=== PATIENT | female | born 1985 | race Hispanic/Latino ===

== ENCOUNTER 2018-09-10 09:50 | Day surgery (SDC) | payer OTHER ==
[2018-09-07 12:51] LABS: Absolute Lymphocytes (CBC) 1.5 K/uL (0.7-4.9); Absolute Monocytes 0.5 K/uL (0.1-1.3); Absolute Neutrophil 5.1 K/uL (1.8-8.0); Eosinophils % 3.7 % (0-4.4); Hematocrit 34.7 % (36.0-45.0); Lymphocytes % 20.5 % (15.3-44.8); MCH 26.2 pg (27.0-35.0); MCV 78.9 fL (80-100); Monocytes % 6.3 % (3.3-12.3)
[2018-09-10 10:14] LABS: Specific Gravity 1.025 (1.005-1.030)
[2018-09-10] MEDS ORDERED: Ringers Lactate 1,000 ML IV ONE (10:40)
[2018-09-10] MEDS ORDERED: MIDAZOLAM HCL 2 MG/2 ML INJ ONE (12:02)
[2018-09-10] MEDS ORDERED: FENTANYL CITR 100 MCG/2 ML ONE (12:23)
[2018-09-10] MEDS ORDERED: LIDOCAINE 2% MPF 5 ML VIAL ONE (12:23)
[2018-09-10] MEDS ORDERED: PROPOFOL 200 MG/20 ML VIAL IV ONE (12:23)
[2018-09-10] MEDS ORDERED: ONDANSETRON HCL 40 MG/20 ML VIAL ONE ×2 (12:24→12:40)
[2018-09-10] MEDS ORDERED: DEXAMETHASONE 10 MG/ML VIAL ONE (12:40)
[2018-09-10] MEDS ORDERED: KETOROLAC 30 MG/ML INJ ONE (12:40)
[2018-09-10] MEDS ORDERED: NA CHLORIDE 0.9% 1,000 ML ONE (14:20)
--- NOTE | 2018-09-11 00:51 | OP ---
Date of Procedure: 09/10/2018 Surgeon: Rochelle Navarrete MD Preoperative Diagnoses: Heavy menstrual bleeding with irregular cycle and pelvic pain and possible p olyp. Postoperative Diagnoses: Heavy menstrual bleeding with irregular cycle and pelvic pain and possible polyp and endometrial polyp. Procedures Performed: Hysteroscopy, polypectomy with Symphion device, and dilation and curettage. Anesthesia: General with LMA. Specimens: Endometrial polyp and curettings. Complications: No complications. Drains: No drains. Condition: The patient's condition stable. Indications: The patient is a 33-year-old with heavy bleeding that had irregular cycles. She was ev aluated with a transvaginal ultrasound. Her ultrasound showed thickened endometrium, which appeared to be heterogeneous suspicious for polyp. Discussed the findings. The patient recommended that she have a hysteroscopy, polypectomy, and D and C if the polyp was present. Doing this in the hospital i s better due to the need for anesthesia, so she was consented, and brought to the OR. Description Of Procedure: After informed consent was verified, she was taken back to OR, placed in a supine fashion on the operating table. After general anesthesia was given, she was placed in a dors al lithotomy position using Osmel stirrups. The cervix was posterior, speculum placed. Anterior lip grasped with 2 Allis clamps. Prep x3 was done with Betadine. Then using a SlimLine hysteroscope, 3 0-degree lens and normal saline for distention medium. Direct hysteroscopy was performed through the cervical canal into the uterine cavity. The cavity had the left lateral wall polyp that was about 1 .5 cm to 2 cm. The rest of the cavity was empty. There was thickened endometrium. Both tubal ostia were visualized. After the scope was removed, the scope was changed to a Symphion scope. Then norm al saline distention was used. After priming the device into the uterine cavity, situated the tip of the scope at a good position, the resector was introduced and fixed in place. Dissection was perfor med on a cutting mode. After the entire polyp was removed, the camera and the polyp dissector were a ll removed. Endometrial curettings were performed with a #3 curette. These were handed out for perm anent pathology along with the polyp. The patient was recovered from anesthesia and taken to the PACU in stable condition. Instrument, nee dle, and sponge counts were correct at the end of the case. The patient tolerated procedure well. S he has a followup appointment in 1 week. JESSIE Voice ID: [id number] Report ID: [id number]
== END 2018-09-10 14:37 | disposition home or self-care (01) ==
LOC: OR 09:50
PROVIDERS: ATTEND Obstetrics & Gynecology
PROC: 0UDB7ZX Extraction of Endometrium, Via Natural or Artificial Opening, Diagnostic (ICD-10-PCS; 2018-09-10)
PROC: 0UJD8ZZ Inspection of Uterus and Cervix, Via Natural or Artificial Opening Endoscopic (ICD-10-PCS; 2018-09-10)
PROC: 0UB97ZX Excision of Uterus, Via Natural or Artificial Opening, Diagnostic (ICD-10-PCS; principal; 2018-09-10 11:30)
DX: N92.1 Excessive and frequent menstruation with irregular cycle (principal); N84.0 Polyp of corpus uteri; N85.00 Endometrial hyperplasia, unspecified; F17.210 Nicotine dependence, cigarettes, uncomplicated
CPT/HCPCS: 36415; 81025; 84443; 85025; 88305; J1100; J2250; J2405; J2704; J3010; J7030

== ENCOUNTER 2021-02-24 22:22 | Emergency (ER) | payer OTHER, SELFPAY ==
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
[2021-02-25 04:39] VITALS: BP 144/90; TEMP 99.6; O2SAT 100
== END 2021-02-25 04:31 | disposition left against medical advice (07) ==
LOC: ER 22:22
DX: Z53.21 Procedure and treatment not carried out due to patient leaving prior to being seen by health care provider (principal)
CPT/HCPCS: 99281